=== PATIENT | male | born 1950 | race Caucasian/White ===

== ENCOUNTER 2024-07-14 13:38 | Day surgery (SDC) | payer MEDICARE ==
[2024-07-14 14:44] LABS: Glucose,Whole Blood 103 mg/dL (70-110)
[2024-07-14] MEDS: LACTATED RINGERS 1,000 ML IV SCH (14:44)
[2024-07-14 14:48] VITALS: TEMP 98.2
[2024-07-14] MEDS: IV FLUID CONTINUATION 1,000 ML IV ONE (14:48)
[2024-07-14] MEDS ORDERED: PROPOFOL 10 MG/ML 20 ML VIAL IV ONE (15:34)
--- NOTE | 2024-07-14 15:57 | P.PCN ---
Date of Procedure: 07/14/24 Procedure(s) Performed: BRIEF HISTORY: Patient is a 73-year-old pleasant white male scheduled for an elective colonoscopy as a part of evaluation by history of colon polyps. Last colonoscopy was 5 years ago and was noted to have a tubular adenoma . PROCEDURE PERFORMED: Colonoscopy with cold snare polypectomy. PREOPERATIVE DIAGNOSIS: History of colon polyps. IV sedation per Anesthesia. PROCEDURE: After informed consent was obtained, the patient, was brought into the endoscopy unit. IV sedation was administered by Anesthesia under continuous monitoring. Digital rectal examination was normal. Initially the Olympus CF-160 flexible video colonoscope was then inserted in the rectum, gradually advanced into the cecum without any difficulty. Careful examination was performed as the scope was gradually being withdrawn. Ileocecal valve and the appendiceal orifice were visualized and appeared normal. Prep was excellent. Mucosa of the cecum, ascending colon appeared normal. The transverse colon there was a 5 mm sessile polyp removed by cold snare polypectomy. In the descending colon there were 4 polyps measuring between 5 to 6 mm in size all which were removed by snare polypectomy. In the sigmoid colon there was a 4 mm polyp removed by snare polypectomy. Scattered sigmoid diverticulosis seen. Rest of the sigmoid colon, and rectum appeared normal. Retroflexion was performed in the rectum and no lesions were seen. The patient tolerated the procedure well. IMPRESSION: 5 mm transverse colon polyp status post cold snare polypectomy 4 small polyps in the descending colon measuring between 4 to 5 mm in size status post cold snare polypectomy 4 mm sigmoid colon polyp status post cold snare polypectomy Scattered sigmoid diverticulosis RECOMMENDATIONS: Findings of this examination were discussed with the patient as well as his family. He was advised to follow-up with the biopsy results. If the biopsy reveals adenoma he can have repeat colonoscopy in 3 years..
[2024-07-14 16:20] VITALS: RESP 20
[2024-07-14] MEDS: IPRATROPIUM-ALBUTEROL 3 ML NEB INHALATION STA (16:21)
[2024-07-14 16:36] VITALS: BP 133/76; PULSE 62
== END 2024-07-14 16:55 | disposition home or self-care (01) ==
LOC: ORWHC2ENDO 13:38
PROVIDERS: ATTEND Internal Medicine Gastroenterology
DX: D12.3 Benign neoplasm of transverse colon (principal); D12.4 Benign neoplasm of descending colon; D12.5 Benign neoplasm of sigmoid colon; K57.30 Diverticulosis of large intestine without perforation or abscess without bleeding; I10 Essential (primary) hypertension; G47.33 Obstructive sleep apnea (adult) (pediatric); E07.9 Disorder of thyroid, unspecified; Z79.890 Hormone replacement therapy; Z79.899 Other long term (current) drug therapy
CPT/HCPCS: 88305; 45385; J2704